=== PATIENT | female | born 1975 | race Asian ===

== ENCOUNTER 2019-11-08 15:47 | Emergency (ER) | payer OTHER ==
[~2019-11-08] VITALS: Ht 154.9 cm; Wt 80.1 kg
[2019-11-08 15:51] VITALS: BP 170/93
--- NOTE | 2019-11-08 16:13 | NUR ---
FIRST CONTACT WITH PT. PT SLIP AND FALL AT [facility] [employer] TODAY. PAIN TO L WRIST, L KNEE, BACK PAIN. PT STATES HIT HEAD ALSO BUT NO LOC. PT'S AOX4. RESPS EVEN AND UNLABORED.
[2019-11-08] MEDS ORDERED: IBUPROFEN 600 MG TABLET ONE (16:19)
[2019-11-08] MEDS ORDERED: IBUPROFEN 600 MG TABLET PO ONE (16:30)
--- NOTE | 2019-11-08 16:30 | NUR ---
PT IN XRAY AT THIS TIME.
--- NOTE | 2019-11-08 16:38 | NUR ---
pt medicated per emar. pt tolerated well.
--- NOTE | 2019-11-08 17:33 | NUR ---
PA AT BEDSIDE TO EXPLAIN ALL RESULTS AT THIS TIME.
--- NOTE | 2019-11-08 18:02 | NUR ---
Patient given discharge instructions and they have confirmed that they understand the instructions. Patient ambulatory with steady gait.
== END 2019-11-08 18:03 | disposition home or self-care (01) ==
LOC: ED 17:17
DX: S50.12XA Contusion of left forearm, initial encounter (principal); M54.5 Low back pain; E11.9 Type 2 diabetes mellitus without complications; W19.XXXA Unspecified fall, initial encounter; Y93.89 Activity, other specified; Y92.89 Other specified places as the place of occurrence of the external cause; Y99.8 Other external cause status
CPT/HCPCS: 72220; 99284